=== PATIENT | male | born 1955 | race Caucasian/White ===

== ENCOUNTER 2019-08-20 14:07 | Outpatient (CLI) | payer OTHER ==
--- NOTE | 2019-08-20 15:46 | CT ---
CT chest noncontrast low-dose screening HISTORY: Tobacco abuse. FINDINGS: Lungs are well-inflated. No focal lung nodule. Minimal dependent atelectasis. No pleural fluid. No lobar consolidation. Airways are patent. Lack of contrast limits evaluation of the soft tissues. Nonenlarged, nonspecific lymph nodes within t he mediastinum. Minimal calcification at the aortic arch. IMPRESSION : Lung RADS category 1. Negative. Suggest routine screening.
== END 2019-08-20 14:08 | disposition home or self-care (01) ==
LOC: BICCT 14:07
PROVIDERS: ATTEND Family Medicine
DX: Z12.2 Encounter for screening for malignant neoplasm of respiratory organs (principal); Z87.891 Personal history of nicotine dependence
CPT/HCPCS: G0297

== ENCOUNTER 2020-01-23 10:04 | Outpatient (CLI) | payer OTHER ==
--- NOTE | 2020-01-23 11:45 | MRI ---
MRI lumbar spine noncontrast HISTORY: Low back pain with left leg radiculopathy. FINDINGS: The conus medullaris has a normal appearance. Vertebral body heights are maintained. Scatte red mild discogenic endplate changes within the bone marrow. T12/L1: Mild osteophytosis. Central canal and neural foramina are patent. L1-2: Desiccation of the disc. Mild diffuse posterior disc bulge. Thecal sac is patent. Osteophytosis of the facets. Moderate stenosis of each neural foramen. L2-3: Desiccation of the disc. Minimal disc bulge. Thecal sac is patent. Osteophytosis of the facets. Mild stenosis of each neural foramen. L3-4: Desiccation of the disc and disc space narrowing. Minimal degenerative retrolisthesis. Focal le ft posterior disc herniation, small, with inferior extension. Resultant mild compression of the left ventral aspect of the thecal sac and origin of the left L4 nerve root. Osteophytosis of the face ts. Moderate to severe bilateral foraminal stenoses. L4-5: Desiccation of the disc. There is 0.4 cm spondylolisthesis. Facets are intact. 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 Prominent posterior ligamentous thickening and osseous hypertrophy of the facets. Severe stenosis of the central canal. Moderate right and moderate to severe left foraminal stenoses. L5-S1: Very small focal posterior central protrusion of the disc, contacting the S1 nerve root origin s on the sagittal images but with no significant artifact apparent on the axial images. Thecal sac is patent. There is osteophytosis of the facets. No significant foraminal stenosis. IMPRESSION : Posterior disc protrusion at the L3-4 level, slightly compressing the thecal sac and origin of the le ft L4 nerve root. Other multilevel degenerative changes throughout the lumbar spine, with central canal and foraminal s tenoses most severe at the L4-5 level. Surgical evaluation may be warranted.
== END 2020-01-23 10:05 | disposition home or self-care (01) ==
LOC: BICMRI 10:04
PROVIDERS: ATTEND Physician Assistant
DX: M54.42 Lumbago with sciatica, left side (principal); M51.16 Intervertebral disc disorders with radiculopathy, lumbar region; M47.816 Spondylosis without myelopathy or radiculopathy, lumbar region; M48.061 Spinal stenosis, lumbar region without neurogenic claudication
CPT/HCPCS: 72148

== ENCOUNTER 2020-08-09 17:44 | Emergency (ER) | payer OTHER ==
[2020-08-09 18:22] LABS: #Eosinphils 0.2 thou/uL (0.0-0.7); #Lymphocytes 2.5 thou/uL (1.20-3.40); #Monocytes 0.5 thou/uL (0.11-0.59); #Neutrophils 4.7 thou/uL (1.40-6.50); %Basophils 0.3 % (0.0-1.0); %Eosinophils 2.7 % (0.0-10.0); %Lymphocytes 31.7 % (21.0-51.0); %Neutrophils 59.4 % (42.0-75.0); Hemoglobin 14.3 g/dL (14.0-18.0); Mean Corpuscular Hemoglobin 30.8 pg (27.0-31.0); Mean Corpuscular Volume 90.4 fL (78.0-98.0); Mean Platelet Volume 8.3 fL (7.4-10.4); Platelet Count 208 thou/uL (130-400); RBC Distribution Width 12.1 % (11.5-14.5); Red Blood Cell (RBC) Count 4.66 mill/uL (4.70-6.10); White Blood Cell (WBC) Count 7.9 thou/uL (4.8-10.8)
[2020-08-09 18:39] LABS: Calcium 9.4 mg/dL (7.8-10.44); Chloride 105 mmol/L (98-107); Potassium 3.6 mmol/L (3.5-5.1); Sodium 140 mmol/L (136-145)
[2020-08-09 18:43] LABS: Albumin 4.3 g/dL (3.4-4.8)
[2020-08-09 18:46] LABS: Globulin 2.7 g/dL (2.4-3.5); Glucose 132 mg/dL (80-115)
[2020-08-09 18:47] LABS: Carbon Dioxide 26 mmol/L (23-31)
[2020-08-09 18:48] LABS: Alkaline Phosphatase 48 U/L (40-110); Bilirubin, Total 0.4 mg/dL (0.2-1.2)
[2020-08-09 18:49] LABS: Calc. Creatinine Clearance 0 mL/min (70-130)
[2020-08-09 18:50] LABS: BUN (Urea Nitrogen) 15 mg/dL (8.4-25.7)
[2020-08-09 18:51] LABS: AST (SGOT) 21 U/L (5-34)
[2020-08-09 18:52] LABS: ALT (SGPT) 28 U/L (8-55)
[2020-08-09 19:04] LABS: Anion Gap 13 mmol/L (10-20)
== END 2020-08-09 19:37 | disposition home or self-care (01) ==
LOC: ERS 17:44
DX: R53.83 Other fatigue (principal); I10 Essential (primary) hypertension; Z87.891 Personal history of nicotine dependence
CPT/HCPCS: 71045; 80053; 83880; 84443; 84484; 85025; 93005

== ENCOUNTER 2020-09-16 15:34 | Outpatient (CLI) | payer OTHER | END 2020-09-16 15:35 | disposition home or self-care (01) | LOC: BICCT 15:34 | PROVIDERS: ATTEND Family Medicine | DX: Z12.2 Encounter for screening for malignant neoplasm of respiratory organs (principal); Z87.891 Personal history of nicotine dependence | CPT/HCPCS: 71271 ==

== ENCOUNTER 2020-10-07 19:30 | Outpatient (CLI) | payer OTHER | END 2020-10-07 19:31 | disposition home or self-care (01) | LOC: SLEEPLAB 19:30 | PROVIDERS: ATTEND Internal Medicine | DX: G47.33 Obstructive sleep apnea (adult) (pediatric) (principal); R53.83 Other fatigue; G31.84 Mild cognitive impairment of uncertain or unknown etiology; F41.9 Anxiety disorder, unspecified; G47.00 Insomnia, unspecified; G47.10 Hypersomnia, unspecified; R06.83 Snoring; E66.9 Obesity, unspecified; Z68.31 Body mass index [BMI] 31.0-31.9, adult | CPT/HCPCS: 95811 ==

== ENCOUNTER 2021-09-29 08:01 | Outpatient (CLI) | payer MEDICARE | END 2021-09-29 08:02 | disposition home or self-care (01) | LOC: BICCT 08:01 | PROVIDERS: ATTEND Family Medicine | DX: Z12.2 Encounter for screening for malignant neoplasm of respiratory organs (principal); Z87.891 Personal history of nicotine dependence | CPT/HCPCS: 71271 ==

== ENCOUNTER 2023-10-18 16:00 | Outpatient (CLI) | payer MEDICARE | END 2023-10-18 16:01 | disposition home or self-care (01) | LOC: BICCT 16:00 | PROVIDERS: ATTEND Family Medicine | DX: Z12.2 Encounter for screening for malignant neoplasm of respiratory organs (principal); Z87.891 Personal history of nicotine dependence | CPT/HCPCS: 71271 ==